=== PATIENT | male | born 1980 | race Caucasian/White ===

== ENCOUNTER 2019-12-03 14:28 | Emergency (ER) | payer SELFPAY ==
[2019-12-03 14:33] VITALS: BP 130/84; PULSE 87; TEMP 97.8; BMI 31.8
[2019-12-03] MEDS ORDERED: CYCLOBENZAPRINE HCL 10 MG TABLET (FP) PO ONE (14:59)
[2019-12-03] MEDS ORDERED: KETOROLAC TROMETHAMINE 60 MG/2 ML VIAL IM ONE (14:59)
[2019-12-03] MEDS ORDERED: KETOROLAC TROMETHAMINE 60 MG/2 ML VIAL ONE (15:02)
[2019-12-03] MEDS ORDERED: CYCLOBENZAPRINE HCL 10 MG TABLET (FP) ONE (15:03)
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
== END 2019-12-03 15:56 | disposition home or self-care (01) ==
LOC: JERFT 14:28
PROC: 3E0233Z Introduction of Anti-inflammatory into Muscle, Percutaneous Approach (ICD-10-PCS; principal; 2019-12-03)
DX: M54.42 Lumbago with sciatica, left side (principal); V43.51XA Car driver injured in collision with sport utility vehicle in traffic accident, initial encounter; Y92.414 Local residential or business street as the place of occurrence of the external cause; Y93.89 Activity, other specified; Y99.8 Other external cause status
CPT/HCPCS: 72100-TC-FY; 99281-25

== ENCOUNTER 2020-10-14 09:54 | Emergency (ER) | payer OTHER ==
[2020-10-14 10:15] VITALS: BP 137/76; PULSE 87; TEMP 98.5; BMI 31.8
[2020-10-14] MEDS ORDERED: predniSONE 20 MG TABLET (UD) PO ONE (11:02)
[2020-10-14] MEDS ORDERED: predniSONE 20 MG TABLET (UD) ONE (11:08)
== END 2020-10-14 11:49 | disposition home or self-care (01) ==
LOC: JER 09:54 → JERFT 09:54
DX: R06.02 Shortness of breath (principal)
CPT/HCPCS: 71046-TC-FY; 93005; 93010; 99285-25; C9803; U0003

== ENCOUNTER 2021-05-05 08:25 | Emergency (ER) | payer OTHER ==
[2021-05-05 08:30] VITALS: BP 114/81; PULSE 84; BMI 29.8
[2021-05-05] MEDS ORDERED: ALBUTEROL SO4 2.5/IPRATROPIUM 0.5 INH SOL 3 ML VIAL.NEB. NEB ONE ×3 (08:42→09:30)
[2021-05-05] MEDS ORDERED: DEXAMETHASONE 4 MG TABLET (FP) PO ONE (08:56)
[2021-05-05] MEDS ORDERED: DEXAMETHASONE SOD PHOSPHATE 10 MG/1 ML VIAL PO ONE (09:12)
[2021-05-05] MEDS ORDERED: DEXAMETHASONE SOD PHOSPHATE 10 MG/1 ML VIAL ONE (09:30)
[2021-05-05 11:29] VITALS: TEMP 98.4
== END 2021-05-05 11:35 | disposition home or self-care (01) ==
LOC: JER 08:25
PROC: 3E0F7GC Introduction of Other Therapeutic Substance into Respiratory Tract, Via Natural or Artificial Opening (ICD-10-PCS; principal; 2021-05-05)
DX: J45.909 Unspecified asthma, uncomplicated (principal)
CPT/HCPCS: 71045-TC-FY; 99284-25; C9803; J1100; U0003; U0005